=== PATIENT | female | born 1970 | race Caucasian/White ===

== ENCOUNTER 2019-01-30 20:16 | Emergency (ER) | payer MEDICAID ==
[~2019-01-30] VITALS: Ht 162.6 cm; Wt 72.7 kg
[~2019-01-30 20:16] MED LIST: ONDA4TAB12 PO; ONDA4TAB6 PO
[2019-01-30 20:22] VITALS: BP 135/87
--- NOTE | 2019-01-30 20:35 | NUR ---
SOC Telepsych initiated.
[2019-01-30 21:00] LABS: BASOPHILS # (AUTO) 0.1 X10'3 (0-0.2); BASOPHILS % (AUTO) 0.6 % (0-1); EOSINOPHILS # (AUTO) 0.3 X10'3 (0-0.9); EOSINOPHILS % (AUTO) 2.9 % (0-6); HEMATOCRIT 45.3 % (35.0-45.0); HEMOGLOBIN 15.3 g/dl (12.0-16.0); LYMPHOCYTES # (AUTO) 2.5 X10'3 (1.1-4.8); LYMPHOCYTES % (AUTO) 27.5 % (21-51); MEAN CORPUSCULAR HEMOGLOBIN 32.7 PG (27.0-31.0); MEAN CORPUSCULAR HGB CONC 33.9 g/dL (33.0-36.5); MEAN CORPUSCULAR VOLUME 96.7 FL (78-98); MEAN PLATELET VOLUME 7.4 FL (7.4-10.4); MONOCYTES # (AUTO) 0.8 X10'3 (0-0.9); MONOCYTES % (AUTO) 9.3 % (2-12); NEUTROPHILS # (AUTO) 5.4 X10'3 (1.8-7.7); NEUTROPHILS % (AUTO) 59.7 % (42-75); PLATELET COUNT 262 X10'3 (140-440); RED BLOOD COUNT 4.68 X10'6 (4.20-5.60); RED CELL DISTRIBUTION WIDTH 12.9 % (11.5-14.5)
[2019-01-30 21:20] LABS: ALANINE AMINOTRANSFERASE 109 U/L (12-78); ALBUMIN 3.6 G/DL (3.4-5.0); ALKALINE PHOSPHATASE 74 IU/L (46-116); ANION GAP 11 (8-16); ASPARTATE AMINO TRANSFERASE 48 U/L (10-37); BILIRUBIN,TOTAL 0.1 MG/DL (0.1-1.0); BLOOD UREA NITROGEN 8 MG/DL (7-18); BUN/CREATININE RATIO 12.5 (6.6-38.0); CALCIUM 9.8 MG/DL (8.5-10.1); CHLORIDE 109 MMOL/L (99-107); CREATININE 0.64 MG/DL (0.40-0.90); GLUCOSE 104 MG/DL (70-104); SODIUM 145 MMOL/L (135-145); TOTAL CARBON DIOXIDE 25.3 MMOL/L (24-32); TOTAL PROTEIN 7.2 G/DL (6.4-8.2); eGFR > 90 ML/MIN
[2019-01-30 21:30] LABS: ETHANOL 0.196 GM/DL (0.0-0.010)
[2019-01-30 22:03] LABS: ACETAMINOPHEN < 2.0 UG/ML (10-30)
--- NOTE | 2019-01-30 23:03 | NUR ---
SOC RECOMMENDS HOLDING PATIENT AT THIS TIME FOR HER SAFETY
[2019-01-30 23:19] LABS: URINE HCG NEGATIVE (NEG)
[2019-01-30 23:29] LABS: URINE AMPHETAMINE SCREEN POSITIVE (Neg); URINE BARBITUATE SCREEN NEGATIVE (Neg); URINE BENZODIAZEPINES SCREEN NEGATIVE (Neg); URINE CANNABINOID SCREEN POSITIVE (Neg); URINE COCAINE SCREEN NEGATIVE (Neg); URINE METHADONE SCREEN NEGATIVE (Neg); URINE OPIATE SCREEN NEGATIVE (Neg); URINE PHENCYCLIDINE SCREEN NEGATIVE (Neg)
[2019-01-31] MEDS ORDERED: NO HOME MEDS (04:08)
--- NOTE | 2019-01-31 04:42 | NUR ---
MOVED TO OF [facility] BED, ORIENTED TO UNIT.
--- NOTE | 2019-01-31 05:59 | NUR ---
Packet sent to [facility]. Unable to confirm receipt, as [id number] hours.
[2019-01-31] MEDS ORDERED: multivitamins, therapeutics tablet PO SCH (08:00)
[2019-01-31] MEDS ORDERED: thiamine 100mg tablet PO SCH (08:00)
[2019-01-31] MEDS ORDERED: folic acid 1mg tablet PO SCH (08:00)
--- NOTE | 2019-01-31 11:00 | NUR ---
Pt continues to rest quietly in bed without complaints. Pt awaiting evaluation by [facility].
--- NOTE | 2019-01-31 12:51 | NUR ---
Pt evaluated by [facility] and deemed to not meet criteria for 5150 and will be released. Pt has bright affect.
== END 2019-01-31 13:10 ==
LOC: ER 20:16
DX: F32.9 Major depressive disorder, single episode, unspecified (principal); F10.920 Alcohol use, unspecified with intoxication, uncomplicated; F12.90 Cannabis use, unspecified, uncomplicated; F15.90 Other stimulant use, unspecified, uncomplicated; Z90.49 Acquired absence of other specified parts of digestive tract; Z88.2 Allergy status to sulfonamides
CPT/HCPCS: 36415; 80053; 80305; 80320; 80329; 81025; 84443; 85025; 99284

== ENCOUNTER 2019-02-17 03:16 | Emergency (ER) | payer MEDICAID ==
[~2019-02-17] VITALS: Ht 162.6 cm; Wt 69.0 kg
[~2019-02-17 03:16] MED LIST changes: +NO HOME MEDS; -ONDA4TAB12 PO; -ONDA4TAB6 PO
[2019-02-17] MEDS ORDERED: fentaNYL/PF 50MCG/1 ML 2ML syringe IV ONE (03:30)
[2019-02-17] MEDS ORDERED: iohexol 300mg/ml 100ml inj. ONE (03:33)
[2019-02-17 04:38] LABS: BASOPHILS # (AUTO) 0.1 X10'3 (0-0.2); BASOPHILS % (AUTO) 0.5 % (0-1); EOSINOPHILS # (AUTO) 0.3 X10'3 (0-0.9); EOSINOPHILS % (AUTO) 2.5 % (0-6); HEMATOCRIT 41.6 % (35.0-45.0); HEMOGLOBIN 14.6 g/dl (12.0-16.0); LYMPHOCYTES # (AUTO) 2.2 X10'3 (1.1-4.8); LYMPHOCYTES % (AUTO) 17.7 % (21-51); MEAN CORPUSCULAR HEMOGLOBIN 33.9 PG (27.0-31.0); MEAN CORPUSCULAR VOLUME 96.8 FL (78-98); MEAN PLATELET VOLUME 7.4 FL (7.4-10.4); MONOCYTES # (AUTO) 1.1 X10'3 (0-0.9); MONOCYTES % (AUTO) 8.8 % (2-12); NEUTROPHILS # (AUTO) 8.7 X10'3 (1.8-7.7); NEUTROPHILS % (AUTO) 70.5 % (42-75); PLATELET COUNT 247 X10'3 (140-440); RED CELL DISTRIBUTION WIDTH 12.2 % (11.5-14.5); WHITE BLOOD COUNT 12.3 X10'3 (4.5-11.0)
[2019-02-17 04:50] LABS: ALANINE AMINOTRANSFERASE 86 U/L (12-78); ALBUMIN 3.7 G/DL (3.4-5.0); ALBUMIN/GLOBULIN RATIO 1.2 (1.1-1.5); ALKALINE PHOSPHATASE 76 IU/L (46-116); ANION GAP 9 (8-16); ASPARTATE AMINO TRANSFERASE 52 U/L (10-37); BILIRUBIN,TOTAL 0.3 MG/DL (0.1-1.0); BLOOD UREA NITROGEN 13 MG/DL (7-18); BUN/CREATININE RATIO 17.3 (6.6-38.0); CALCIUM 8.6 MG/DL (8.5-10.1); CHLORIDE 104 MMOL/L (99-107); CREATININE 0.75 MG/DL (0.40-0.90); ETHANOL 0.173 GM/DL (0.0-0.010); GLUCOSE 94 MG/DL (70-104); POTASSIUM 3.2 MMOL/L (3.5-5.1); SODIUM 138 MMOL/L (135-145); TOTAL CARBON DIOXIDE 25.2 MMOL/L (24-32); TOTAL PROTEIN 6.8 G/DL (6.4-8.2); eGFR 83 ML/MIN
[2019-02-17] MEDS ORDERED: TETanus/Pertussis (Acell)/Diphther VAC/PF (Tdap-Adult) 0.5ml syringe IM ONE (05:35)
--- NOTE | 2019-02-17 05:48 | NUR ---
tele psych initiated
--- NOTE | 2019-02-17 06:39 | NUR ---
FROM SOC FOR STATUS UPDATE
[2019-02-17] MEDS ORDERED: ondansetron/PF 4mg/2ml inj IV ONE (06:50)
--- NOTE | 2019-02-17 06:52 | NUR ---
PT EVALUATED BY SOC. RECOMMENDED GABAPENTIN 100MG TID AND TO PLACE PT ON A 5150 HOLD. WILL NOTIFIY [facility] AND PROVIDER
--- NOTE | 2019-02-17 07:30 | NUR ---
PT C/O NAUSEA, MEDICATED WITH ZOFRAN. STATES NAUSEA IS BETTER NOW
[2019-02-17] MEDS ORDERED: gabapentin 100mg capsule PO ONE ×2 (08:00)
[2019-02-17 09:53] LABS: URINE HCG NEGATIVE (NEG)
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
[2019-02-17] MEDS ORDERED: LORazepam 1 MG tablet PO ONE ×2 (10:10→20:30)
[2019-02-17 10:11] LABS: URINE AMPHETAMINE SCREEN POSITIVE (Neg); URINE BARBITUATE SCREEN NEGATIVE (Neg); URINE BENZODIAZEPINES SCREEN NEGATIVE (Neg); URINE CANNABINOID SCREEN POSITIVE (Neg); URINE COCAINE SCREEN NEGATIVE (Neg); URINE METHADONE SCREEN NEGATIVE (Neg); URINE OPIATE SCREEN NEGATIVE (Neg); URINE PHENCYCLIDINE SCREEN NEGATIVE (Neg)
--- NOTE | 2019-02-17 10:43 | NUR ---
PT SEEN BY SHENG FROM [facility], PT PLACED ON 5150 HOLD. TELEPSYCH REPORT RECEIVED, RECOMMENDATIONS REVIEWED BY DR ARRINGTON AND MEDICATIONS ORDER RECOMMENDED.
[2019-02-17] MEDS ORDERED: GABA-530 PO (10:51)
[2019-02-17] MEDS ORDERED: FOLATE PO (10:51)
[2019-02-17] MEDS ORDERED: THIA100T66 PO (10:53)
[2019-02-17] MEDS ORDERED: folic acid 1mg tablet PO ONE (11:00)
[2019-02-17] MEDS ORDERED: folic acid 1mg tablet PO SCH (11:00)
[2019-02-17] MEDS: folic acid 1mg tablet PO SCH (11:10)
[2019-02-17] MEDS: thiamine 100mg tablet PO SCH (12:41)
[2019-02-17] MEDS: gabapentin 100mg capsule PO SCH ×2 (12:42→20:42)
[2019-02-17] MEDS ORDERED: gabapentin 100mg capsule PO SCH (16:00)
--- NOTE | 2019-02-17 16:01 | NUR ---
PATIENT ARRIVED ON OVERFLOW UNIT, AMBULATORY TO ER #[id number]. PATIENT SEEMS ANXIOUS UPON ARRIVAL. ASSISTED TO BED AND WARM BLANKET GIVEN.
[2019-02-17 16:46] LABS: CLARITY,URINE SLIGHTLY CLOUDY (Clear); COLOR,URINE YELLOW (Yellow); GLUCOSE, URINE NEGATIVE (Neg); KETONES,URINE TRACE mg/dl (Neg); LEUKOCYTE ESTERASE ,URINE NEGATIVE (Neg); NITRITES, URINE POSITIVE (Neg); OCCULT BLOOD,URINE TRACE-LYSED (Neg); PROTEIN,URINE TRACE mg/dl (Neg); UA COLLECTION TYPE CLN CATCH MIDSTREAM; UROBILINOGEN,URINE 0.2 E.U/dL (0.2-1.0)
[2019-02-17 17:05] LABS: SQUAMOUS EPITHELIAL CELL,UR FEW /LPF (FEW)
[2019-02-17 17:06] LABS: BACTERIA,URINE 2+ /HPF (Neg); RBC,URINE 0-2 /HPF (0-2)
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
[2019-02-17] MEDS: HYDROcodone/acetaminophen 5mg/325mg tablet PO PRN (20:42)
--- NOTE | 2019-02-17 21:45 | NUR ---
The patient is resting on her bed. She appears to be asleep
[2019-02-17] MEDS ORDERED: potassium Cl 20 mEq SR tablet PO STA (22:56)
[2019-02-17] MEDS: nitrofuran/nitrofuran macrocrysal 100 MG capsule PO SCH (23:08)
--- NOTE | 2019-02-17 23:13 | NUR ---
Discussed K+ level and UA results with Dr. Herrera and orders received. The patient stated she has been having symptoms of a UTI for "a long time"
--- NOTE | 2019-02-18 00:44 | NUR ---
The patient appears to be asleep
--- NOTE | 2019-02-18 03:01 | NUR ---
The patient appears to be asleep at this time
--- NOTE | 2019-02-18 04:55 | NUR ---
The patient appears to be asleep
--- NOTE | 2019-02-18 06:30 | NUR ---
Patient asleep upon change of shift observation. Undisturbed at this time.
[2019-02-18] MEDS ORDERED: FOLATE 1 MG PO SCH (08:00)
--- NOTE | 2019-02-18 08:30 | NUR ---
Awakened for Breakfast and morning medications. Pleasant upon staff approach though states she is in "a lot of pain" and has difficulty moving from side to side. Concerned regarding the status of her dog that she left alone in her apartment. Able to contact boyfriend who stated he would go to her home and check on the dog. Mother at bedside, visiting. Also braiding patient's hair. Patient picked at her food. Ate poorly.
[2019-02-18] MEDS: folic acid 1mg tablet PO SCH (08:46)
[2019-02-18] MEDS: gabapentin 100mg capsule PO SCH (08:46)
[2019-02-18] MEDS: thiamine 100mg tablet PO SCH (08:47)
[2019-02-18] MEDS: HYDROcodone/acetaminophen 5mg/325mg tablet PO PRN (08:47)
[2019-02-18] MEDS: nitrofuran/nitrofuran macrocrysal 100 MG capsule PO SCH (08:52)
--- NOTE | 2019-02-18 10:00 | NUR ---
Call received from Charge Nurse Juvenal RICO from [facility] stating patient had been accepted upstairs for admission. Patient informed and is happy with this news.
--- NOTE | 2019-02-18 11:24 | NUR ---
Patient accepted at [facility]. Will be admitted upstairs within the hour.
[2019-02-18 11:40] VITALS: BP 95/50
[2019-02-19] MEDS ORDERED: NO HOME MEDS (15:24)
== END 2019-02-18 11:00 ==
LOC: ER 03:17
DX: S60.221A Contusion of right hand, initial encounter (principal); S60.031A Contusion of right middle finger without damage to nail, initial encounter; S20.412A Abrasion of left back wall of thorax, initial encounter; F32.9 Major depressive disorder, single episode, unspecified; F12.90 Cannabis use, unspecified, uncomplicated; F15.90 Other stimulant use, unspecified, uncomplicated; Z90.49 Acquired absence of other specified parts of digestive tract; Z88.2 Allergy status to sulfonamides; Z79.899 Other long term (current) drug therapy; V45 Car occupant injured in collision with railway train or railway vehicle; Y93.39 Activity, other involving climbing, rappelling and jumping off; Y92.89 Other specified places as the place of occurrence of the external cause; Y99.8 Other external cause status
CPT/HCPCS: 36415; 71260; 72125; 73130; 80053; 80305; 80320; 81001; 81025; 85025; 90471; 90715; 96374; 99285; J2405; J3010; Q9967; 99284

== ENCOUNTER 2019-02-18 10:42 | Inpatient (IN) | payer MEDICAID ==
[~2019-02-18] VITALS: Ht 162.6 cm; Wt 73.0 kg
[~2019-02-18 10:42] MED LIST changes: +FOLATE PO; +GABA-530 PO; -NO HOME MEDS; +THIA100T66 PO
[2019-02-18] MEDS ORDERED: loperamide 2mg capsule PO PRN (12:20)
[2019-02-18] MEDS ORDERED: mag hydrox/Alum hydrox/simeth 30ml oral suspension PO PRN (12:20)
[2019-02-18] MEDS ORDERED: acetaminophen 325mg tablet PO PRN (12:20)
[2019-02-18] MEDS ORDERED: magnesium hydroxide 30ml (MOM) UD suspension PO PRN (12:20)
[2019-02-18] MEDS ORDERED: tuberculin, purif. prot. deriv. 5 units/0.1ml ID ONE (12:20)
[2019-02-18] MEDS ORDERED: hydrOXYzine 25 MG tablet PO PRN (12:20)
[2019-02-18 13:27] VITALS: BP 110/63
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
[2019-02-18] MEDS: traMADol 50MG tablet PO PRN (17:47)
[2019-02-18] MEDS: LORazepam 1 MG tablet PO PRN (17:48)
[2019-02-18] MEDS: acetaminophen 325mg tablet PO PRN (17:48)
[2019-02-18 20:00] VITALS: BP 106/67
[2019-02-18] MEDS: quetiapine 100mg tablet PO SCH (21:12)
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
[2019-02-19 07:55] VITALS: BP 93/58
[2019-02-19] MEDS: traMADol 50MG tablet PO PRN ×2 (09:41→16:09)
[2019-02-19] MEDS ORDERED: NO HOME MEDS (15:24)
[2019-02-19] MEDS: LORazepam 1 MG tablet PO PRN (16:07)
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
[2019-02-19 20:00] VITALS: BP 90/56
[2019-02-19] MEDS: quetiapine 100mg tablet PO SCH (20:59)
[2019-02-19] MEDS ORDERED: hydrOXYzine 25 MG tablet PO PRN (21:25)
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
[2019-02-20 07:49] VITALS: BP 103/53
[2019-02-20] MEDS: FLUoxetine 20mg capsule PO SCH (08:05)
[2019-02-20] MEDS: LORazepam 1 MG tablet PO PRN (08:23)
[2019-02-20] MEDS: traMADol 50MG tablet PO PRN ×2 (08:24→21:48)
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
[2019-02-20 19:41] VITALS: BP 130/83
[2019-02-20] MEDS ORDERED: traZODone 50mg tablet PO SCH (20:00)
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
[2019-02-21] MEDS: FLUoxetine 20mg capsule PO SCH (07:30)
[2019-02-21 07:39] VITALS: BP 92/57
[2019-02-21] MEDS: acetaminophen 325mg tablet PO PRN (07:40)
[2019-02-21 09:05] LABS: CHOL/HDL RATIO 1.6 (0.00-4.99); CHOLESTEROL 145 MG/DL (0-200); HDL CHOLESTEROL 90 MG/DL (35-60); LDL CHOLESTEROL 48 MG/DL (50-100); TRIGLYCERIDES 78 MG/DL (20-135)
[2019-02-21 10:33] LABS: COLOR,URINE YELLOW (Yellow); GLUCOSE, URINE NEGATIVE (Neg); KETONES,URINE NEGATIVE (Neg); LEUKOCYTE ESTERASE ,URINE NEGATIVE (Neg); NITRITES, URINE NEGATIVE (Neg); OCCULT BLOOD,URINE NEGATIVE (Neg); PROTEIN,URINE NEGATIVE (Neg); UROBILINOGEN,URINE 0.2 E.U/dL (0.2-1.0)
[2019-02-21 10:34] LABS: CLARITY,URINE SLIGHTLY CLOUDY (Clear); UA COLLECTION TYPE NON-SPECIFIED
[2019-02-21 10:48] LABS: BACTERIA,URINE FEW /HPF (Neg); MUCUS STRANDS NONE SEEN /LPF (Neg); RBC,URINE NONE SEEN /HPF (0-2); SQUAMOUS EPITHELIAL CELL,UR MODERATE /LPF (FEW); WBC,URINE 0-4 /HPF (0-4)
[2019-02-21] MEDS ORDERED: HYDR-3686 PO (11:08)
[2019-02-21] MEDS ORDERED: TRAZ-218 PO (11:08)
[2019-02-21] MEDS ORDERED: FLUO20CA22 PO (11:08)
--- NOTE | 2019-02-21 12:00 | NUR ---
Pt. discharged to home with belongings and valuables. Pt. understood plan of discarge. Pt. denies SI/HI, A/V H. Pictures of back bruise and hand bruise taken and placed in chart. Pt. picked up by boyfriend and discharged to home. Scripts faxed to [facility] on [address] per request of pt. Pt. is alert and oriented x4 and ambulated off unit.
== END 2019-02-21 12:09 | disposition home or self-care (01) | DRG 751 ==
LOC: ADULT MH 10:42
PROVIDERS: ADMIT Psychiatry & Neurology Psychiatry; ATTEND Family Medicine
DX: F33.9 Major depressive disorder, recurrent, unspecified (principal); B19.20 Unspecified viral hepatitis C without hepatic coma; F10.20 Alcohol dependence, uncomplicated; F12.90 Cannabis use, unspecified, uncomplicated; F51.01 Primary insomnia; F15.90 Other stimulant use, unspecified, uncomplicated; F41.0 Panic disorder [episodic paroxysmal anxiety]; Z79.899 Other long term (current) drug therapy; Z90.49 Acquired absence of other specified parts of digestive tract; S60.222A Contusion of left hand, initial encounter; X58.XXXA Exposure to other specified factors, initial encounter; Y93.89 Activity, other specified; Y92.815 Train as the place of occurrence of the external cause; Y99.8 Other external cause status
CPT/HCPCS: 36415; 80061; 81001; 83036; 87070; 99285; Q0177

== ENCOUNTER 2020-04-21 14:36 | Emergency (ER) | payer MEDICAID ==
[~2020-04-21] VITALS: Ht 162.6 cm; Wt 68.2 kg
[~2020-04-21 14:36] MED LIST changes: +FLUO-167 PO; -FOLATE PO; -GABA-530 PO; +HYDR-3686 PO; +LIDOcaine 1% W/epiNEPHrine 1:100,000 20ml vial ONE; +NO HOME MEDS; -THIA100T66 PO; +TRAZ-251 PO
[2020-04-21 14:44] VITALS: BP 133/94
--- NOTE | 2020-04-21 16:19 | NUR ---
pt to xray
[2020-04-21] MEDS ORDERED: IBUP-1985 PO (18:21)
== END 2020-04-21 18:30 | disposition home or self-care (01) ==
LOC: ER 14:37
DX: S71.111A Laceration without foreign body, right thigh, initial encounter (principal); S80.12XA Contusion of left lower leg, initial encounter; S80.11XA Contusion of right lower leg, initial encounter; S60.512A Abrasion of left hand, initial encounter; S80.212A Abrasion, left knee, initial encounter; F32.9 Major depressive disorder, single episode, unspecified; F10.10 Alcohol abuse, uncomplicated; F12.90 Cannabis use, unspecified, uncomplicated; F15.90 Other stimulant use, unspecified, uncomplicated; Z90.49 Acquired absence of other specified parts of digestive tract; Z88.2 Allergy status to sulfonamides; Z79.899 Other long term (current) drug therapy; V19.88XA Pedal cyclist (driver) (passenger) injured in other specified transport accidents, initial encounter; Y93.89 Activity, other specified; Y92.488 Other paved roadways as the place of occurrence of the external cause; Y99.8 Other external cause status
CPT/HCPCS: 73110; 73564; 73660; 99284

== ENCOUNTER 2020-10-26 12:46 | Emergency (ER) | payer MEDICAID ==
[~2020-10-26 12:46] MED LIST changes: +IBUP-1985 PO; -LIDOcaine 1% W/epiNEPHrine 1:100,000 20ml vial ONE
[2020-10-26] MEDS ORDERED: ceFAZolin 1000mg inj ONE (13:02)
[2020-10-26] MEDS ORDERED: vancomycin 1,000mg inj ONE (13:02)
--- NOTE | 2020-10-26 13:14 | NUR ---
SECOND CALL, NOT IN LOBBY
--- NOTE | 2020-10-26 13:42 | NUR ---
THIRD CALL NOT IN LOBBY. CHART GIVEN TO SECURITY INVESTIGATOR
== END 2020-10-26 14:08 | disposition left against medical advice (07) ==
LOC: ER 12:47
DX: M25.539 Pain in unspecified wrist (principal); Z53.21 Procedure and treatment not carried out due to patient leaving prior to being seen by health care provider
CPT/HCPCS: J0690; J3370

== ENCOUNTER 2021-02-18 08:11 | Emergency (ER) | payer MEDICAID ==
[~2021-02-18] VITALS: Ht 167.6 cm; Wt 81.8 kg
[2021-02-18] MEDS ORDERED: ketorolac trometh. 30mg/ml inj. IM ONE (08:30)
[2021-02-18 11:28] LABS: BASOPHILS # (AUTO) 0.1 X10'3 (0-0.2); BASOPHILS % (AUTO) 0.8 % (0-1); EOSINOPHILS # (AUTO) 0.5 X10'3 (0-0.9); EOSINOPHILS % (AUTO) 6.2 % (0-6); HEMATOCRIT 41.4 % (35.0-45.0); LYMPHOCYTES # (AUTO) 1.6 X10'3 (1.1-4.8); LYMPHOCYTES % (AUTO) 20.6 % (21-51); MEAN CORPUSCULAR HEMOGLOBIN 32.6 PG (27.0-31.0); MEAN CORPUSCULAR HGB CONC 33.8 g/dL (33.0-36.5); MEAN CORPUSCULAR VOLUME 96.4 FL (78-98); MEAN PLATELET VOLUME 7.2 FL (7.4-10.4); MONOCYTES # (AUTO) 0.9 X10'3 (0-0.9); NEUTROPHILS # (AUTO) 4.8 X10'3 (1.8-7.7); NEUTROPHILS % (AUTO) 61.4 % (42-75); PLATELET COUNT 269 X10'3 (140-440); RED CELL DISTRIBUTION WIDTH 13.2 % (11.5-14.5); WHITE BLOOD COUNT 7.8 X10'3 (4.5-11.0)
[2021-02-18 11:42] LABS: ALANINE AMINOTRANSFERASE 72 U/L (12-78); ALBUMIN 3.4 G/DL (3.4-5.0); ALKALINE PHOSPHATASE 64 IU/L (46-116); ANION GAP 8 (8-16); ASPARTATE AMINO TRANSFERASE 41 U/L (10-37); BILIRUBIN,TOTAL 0.5 MG/DL (0.1-1.0); BLOOD UREA NITROGEN 13 MG/DL (7-18); BUN/CREATININE RATIO 17.8 (6.6-38.0); CALCIUM 8.8 MG/DL (8.5-10.1); CHLORIDE 104 MMOL/L (99-107); CREATININE 0.73 MG/DL (0.40-0.90); GLUCOSE 104 MG/DL (70-104); POTASSIUM 3.8 MMOL/L (3.5-5.1); SODIUM 139 MMOL/L (135-145); TOTAL CARBON DIOXIDE 26.7 MMOL/L (24-32); TOTAL PROTEIN 6.9 G/DL (6.4-8.2); eGFR 85 ML/MIN
[2021-02-18 11:57] LABS: D-DIMER 0.28 MG/L FEU (0-0.50)
[2021-02-18] MEDS ORDERED: HYDR-3965 PO (12:16)
[2021-02-18 12:21] VITALS: BP 135/80
== END 2021-02-18 12:26 | disposition home or self-care (01) ==
LOC: ER 08:11
DX: R07.89 Other chest pain (principal); R91.1 Solitary pulmonary nodule; F32.9 Major depressive disorder, single episode, unspecified; F10.10 Alcohol abuse, uncomplicated; F12.90 Cannabis use, unspecified, uncomplicated; F15.90 Other stimulant use, unspecified, uncomplicated; F17.210 Nicotine dependence, cigarettes, uncomplicated; Z90.49 Acquired absence of other specified parts of digestive tract; Z88.2 Allergy status to sulfonamides; Z79.899 Other long term (current) drug therapy; Y90.9 Presence of alcohol in blood, level not specified
CPT/HCPCS: 36415; 71045; 71250; 80053; 85025; 85379; 85610; 96372; 99285; J1885

== ENCOUNTER 2022-08-13 10:09 | Emergency (ER) | payer MEDICAID ==
[~2022-08-13] VITALS: Ht 162.6 cm; Wt 76.0 kg
[2022-08-13] MEDS ORDERED: normal saline 1000ML IV soln IV ONE (10:45)
[2022-08-13] MEDS ORDERED: ondansetron/PF 4mg/2ml inj IV ONE (10:45)
[2022-08-13] MEDS ORDERED: LORazepam 2 mg/ml vial IV ONE (10:45)
[2022-08-13] MEDS ORDERED: normal saline 1000ML IV soln IVB ONE (10:45)
[2022-08-13] MEDS ORDERED: famotidine/PF 10 mg/ml inj IV ONE (10:45)
[2022-08-13] MEDS ORDERED: glucagon, human recombinant 1mg kit IV ONE (10:45)
[2022-08-13 11:18] LABS: BASOPHILS % (AUTO) 0.4 % (0-1); EOSINOPHILS # (AUTO) 0.1 X10'3 (0-0.9); EOSINOPHILS % (AUTO) 2.7 % (0-6); HEMATOCRIT 47.7 % (35.0-45.0); HEMOGLOBIN 16.2 g/dl (12.0-16.0); LYMPHOCYTES # (AUTO) 1.1 X10'3 (1.1-4.8); LYMPHOCYTES % (AUTO) 19.8 % (21-51); MEAN CORPUSCULAR HEMOGLOBIN 32.9 PG (27.0-31.0); MEAN CORPUSCULAR VOLUME 96.9 FL (78-98); MEAN PLATELET VOLUME 7.4 FL (7.4-10.4); MONOCYTES # (AUTO) 0.6 X10'3 (0-0.9); MONOCYTES % (AUTO) 10.9 % (2-12); NEUTROPHILS # (AUTO) 3.6 X10'3 (1.8-7.7); NEUTROPHILS % (AUTO) 66.2 % (42-75); PLATELET COUNT 250 X10'3 (140-440); RED BLOOD COUNT 4.92 X10'6 (4.20-5.60); RED CELL DISTRIBUTION WIDTH 12.5 % (11.5-14.5); WHITE BLOOD COUNT 5.5 X10'3 (4.5-11.0)
[2022-08-13 11:30] LABS: ALANINE AMINOTRANSFERASE 160 U/L (12-78); ALKALINE PHOSPHATASE 69 IU/L (46-116); ANION GAP 9 (8-16); ASPARTATE AMINO TRANSFERASE 86 U/L (10-37); BILIRUBIN,TOTAL 0.7 MG/DL (0.1-1.0); BLOOD UREA NITROGEN 9 MG/DL (7-18); CALCIUM 9.8 MG/DL (8.5-10.1); CHLORIDE 105 MMOL/L (99-107); CREATININE 0.69 MG/DL (0.40-0.90); GLUCOSE 100 MG/DL (70-104); POTASSIUM 3.8 MMOL/L (3.5-5.1); SODIUM 140 MMOL/L (135-145); TOTAL CARBON DIOXIDE 25.6 MMOL/L (24-32); eGFR 90 ML/MIN
[2022-08-13 15:25] VITALS: BP 148/78
== END 2022-08-13 16:16 | disposition home or self-care (01) ==
LOC: ER 10:09
DX: K22.2 Esophageal obstruction (principal); R10.9 Unspecified abdominal pain; F12.90 Cannabis use, unspecified, uncomplicated; F15.20 Other stimulant dependence, uncomplicated; Z88.2 Allergy status to sulfonamides; Z90.49 Acquired absence of other specified parts of digestive tract
CPT/HCPCS: 36415; 71045; 80053; 85025; 85610; 96361; 96374; 96375; 99284; J1610; J2060; J2405; J3490; J7030

== ENCOUNTER 2023-01-19 19:36 | Emergency (ER) | payer MEDICAID ==
[~2023-01-19] VITALS: Ht 162.6 cm; Wt 79.5 kg
[2023-01-19] MEDS ORDERED: albuterol 2.5 MG/3 ML nebule NEB STA (19:39)
[2023-01-19 19:40] VITALS: BP 146/106
== END 2023-01-19 20:58 | disposition left against medical advice (07) ==
LOC: ER 19:37
DX: J45.909 Unspecified asthma, uncomplicated (principal); Z53.21 Procedure and treatment not carried out due to patient leaving prior to being seen by health care provider
CPT/HCPCS: 94640; 94760; 99281

== ENCOUNTER 2023-01-22 15:52 | Emergency (ER) | payer MEDICAID ==
[~2023-01-22] VITALS: Ht 160 cm; Wt 79.5 kg
[2023-01-22 15:57] VITALS: BP 134/67
[2023-01-22] MEDS ORDERED: ALBU8HFA PO (16:22)
[2023-01-22] MEDS ORDERED: FLUO-167 PO (16:22)
== END 2023-01-22 17:38 | disposition home or self-care (01) ==
LOC: ER 15:53
DX: F41.9 Anxiety disorder, unspecified (principal); F32.9 Major depressive disorder, single episode, unspecified; F12.90 Cannabis use, unspecified, uncomplicated; F15.90 Other stimulant use, unspecified, uncomplicated; F10.10 Alcohol abuse, uncomplicated; Z90.49 Acquired absence of other specified parts of digestive tract; Z86.19 Personal history of other infectious and parasitic diseases; Z88.2 Allergy status to sulfonamides; Z79.899 Other long term (current) drug therapy; Y90.9 Presence of alcohol in blood, level not specified
CPT/HCPCS: 71045; 99283

== ENCOUNTER 2023-04-05 16:18 | Emergency (ER) | payer MEDICAID | END 2023-04-05 17:19 | disposition left against medical advice (07) | LOC: ER 16:19 | DX: F41.9 Anxiety disorder, unspecified (principal); Z53.21 Procedure and treatment not carried out due to patient leaving prior to being seen by health care provider ==

== ENCOUNTER 2023-10-09 14:12 | Emergency (ER) | payer MEDICAID ==
[~2023-10-09] VITALS: Ht 162.6 cm; Wt 78.4 kg
[~2023-10-09 14:12] MED LIST changes: +CEPH-585 PO
[2023-10-09] MEDS ORDERED: diphenhydrAMINE 50 mg/ml inj IM ONE (15:50)
[2023-10-09] MEDS ORDERED: DIPH25CA83 PO (17:29)
[2023-10-09 17:37] VITALS: BP 184/82; PULSE 62; RESP 16; TEMP 98.7; O2SAT 99
== END 2023-10-09 17:43 | disposition home or self-care (01) ==
LOC: ER 14:13
DX: L29.9 Pruritus, unspecified (principal); T43.595A Adverse effect of other antipsychotics and neuroleptics, initial encounter; F32.9 Major depressive disorder, single episode, unspecified; F12.90 Cannabis use, unspecified, uncomplicated; F15.90 Other stimulant use, unspecified, uncomplicated; F10.10 Alcohol abuse, uncomplicated; Z90.49 Acquired absence of other specified parts of digestive tract; Z86.19 Personal history of other infectious and parasitic diseases; Z88.2 Allergy status to sulfonamides; Z79.899 Other long term (current) drug therapy; Y92.89 Other specified places as the place of occurrence of the external cause; Y90.9 Presence of alcohol in blood, level not specified
CPT/HCPCS: 96372; 99283; J1200

== ENCOUNTER 2024-05-15 12:34 | Outpatient (CLI) | payer MEDICAID ==
[~2024-05-15 12:34] MED LIST changes: +DIPH25CA83 PO
== END 2024-05-15 23:59 | disposition home or self-care (01) ==
LOC: RAD 12:34
PROVIDERS: ATTEND Family Medicine
DX: K76.0 Fatty (change of) liver, not elsewhere classified (principal); B19.20 Unspecified viral hepatitis C without hepatic coma; Z90.49 Acquired absence of other specified parts of digestive tract
CPT/HCPCS: 76700

== ENCOUNTER → 2025-07-05 | Emergency (ER) | payer MEDICAID ==
[~2025-07-05] VITALS: Ht 162.6 cm; Wt 71.8 kg
[~2025-07-05] MED LIST changes: -CEPH-585 PO; -IBUP-1985 PO; +IBUP600T52 PO; +LIDOcaine 1% W/epiNEPHrine 1:100,000 20ml vial SQ ONE
[2025-07-05 16:05] VITALS: TEMP 98.5
--- NOTE | 2025-07-05 16:15 | Physician Documentation ---
History of Present Illness ~ Chief Complaint: Vaginal pain Stated Complaint: CYST Time Seen by MD: 18:06 Primary Medical Doctor: Dr. Sweeney [facility] This is a 55-year-old female who presents with concern for Bartholin cyst, patient was seen at an urgent care and informed she had an one cyst that would require drainage that the urgent care was unable to drain on-site, patient reports she was told she needed to see a specialist. Patient reports no other acute symptoms or concerns. Patient states she started a prescription of clindamycin 3 times a day a few days ago. Patient has no other complaints at this time. She denies any fevers or chills. Medication Reconciliation Allergies: Coded Allergies: Sulfa (Sulfonamide Antibiotics) (Verified Allergy, Severe, COLLAPSED AIRWAY, 07/05/25) Scheduled Diphenhydramine Hcl (Benadryl), 1 CAP PO HS Fluoxetine HCl (Fluoxetine HCl), 20 MG PO DAILY Ibuprofen (Ibuprofen), 1 TAB PO Q8H Trazodone HCl (Trazodone HCl), 100 MG PO DAILY@20 Scheduled PRN Hydroxyzine Hcl* (Atarax*), 50 MG PO Q6H PRN for AGITATION Miscellaneous Medications Home Med List (No Home Medications), (Reported) Past Medical History Past Medical History: Hepatitis C, Liver Disease, *INFECTIOUS DZ*, Depression Past Surgical History: cholecystectomy Alcohol Use: Abuse Drug Use: marijuana, methamphetamine Lives with: Mother Lives In: Home Review of Systems ROS As stated above in the HPI, otherwise all systems are reviewed and negative. Constitutional: Denies: chills, fever, weakness Eyes: Denies: pain, blurred vision ENT: Denies: ear pain, nose pain, throat pain, mouth pain Respiratory: Denies: cough, shortness of breath Cardiovascular: Denies: chest pain, palpitations Gastrointestinal: Denies: abdominal pain, nausea, vomiting Genitourinary: Denies: burning, dysuria Female Genitalia: Denies: vaginal discharge, pelvic pain Neurological: Denies: headache, dizziness Musculoskeletal: Denies: pain, swelling Integumentary: Denies: rash, lesions Allergic/Immunologic: Denies: hives, itching Hematologic/Lymphatic: Denies: no symptoms reported Psychiatric: Denies: depression, anxiety Physical Exam Vital Signs: Temperature: 98.5, Source: Temporal, Heart Rate: 79, Respiratory Rate: 18, BP: 136/91, Pulse Oximetry: 97, Weight: 71.820 Oxygen Flow Rate: 0 Physical Exam General: Awake and Alert, no acute distress. HEENT: Conjunctiva pink, Sclera clear, Mucus Membranes moist. Neck: Supple without masses and tenderness. Resp: Unlabored. Lungs clear to auscultation bilaterally. Heart: Regular Rate and rhythm, normal S1 and S2 without murmur, rub or gallop. Genitourinary: Patient on exam does have cyst of the Bartholin gland with tenderness to palpation proximally the size of a golf ball or just smaller. On the left side. There is no current drainage at this time. Extremities: No cyanosis,clubbing or edema. Skin: Warm and Dry. Procedures Additional Procedures Additional Procedure Note Procedure note incision and drainage: 2 cc of 1% lidocaine with epinephrine was used to achieve local anesthesia of the left Bartholin cyst/abscess. A small incision measuring proximally 5 mm using an 11 blade was then used to Clark the abscess. The large amount of the purulent material was expressed. Quarter-inch packing was then used to tack the Bartholin abscess/cyst by myself today. Patient tolerated well. Progress Results/Orders Results/Orders Completed Orders - SCOTT PEACE PAC Lidocaine 1% W/Epi 1:100,000 (Xylocaine (07/05/25 21:30) Vital Signs 07/05/25 07/05/25 07/05/25 07/05/25 16:05 18:40 18:40 21:11 Temp 98.5 Pulse 79 71 62 Resp 18 18 18 18 B/P (MAP) 136/91 112/75 (87) 107/76 (86) Pulse Ox 97 98 97 O2 Flow Rate 0 0 0 07/05/25 21:26 B/P (MAP) Medical Decision Making Findings This is a 55-year-old female who presents with concern for Bartholin cyst, patient was seen at an urgent care and informed she had an one cyst that would require drainage that the urgent care was unable to drain on-site, patient reports she was told she needed to see a specialist. Patient reports no other acute symptoms or concerns. Patient states she started a prescription of clindamycin 3 times a day a few days ago. Patient has no other complaints at this time. She denies any fevers or chills. I was able to Clark the Bartholin's cyst/abscess and patient commented on immediate relief of pressure and pain. Patient will follow up with pipe installer specialist as soon as possible. Patient will return in two days for removal of packing and repacking of the cyst. Patient will return to ED with any worsening, concerning or changing symptoms. Patient will Departure Disposition: 01 HOME / SELF CARE / HOMELESS Impression: Primary Impression: Abscess of Bartholin's gland Condition: Improved Discharge Instructions: Bartholin's Cyst and Abscess Additional Instructions: I was able to Clark the Bartholin's cyst/abscess and patient commented on immediate relief of pressure and pain. Patient will follow up with pipe installer specialist as soon as possible. Patient will return in two days for removal of packing and repacking of the cyst. Patient will return to ED with any worsening, concerning or changing symptoms. Patient will Referrals: NO PRIMARY CARE PROVIDER (PCP) Signature Scribe Signature: No scribe Attestation: No scribe REGI SANFORDP Jul 05, 2025 16:15 SCOTT PEACE Jul 05, 2025 23:00
[2025-07-05 22:56] VITALS: BP 140/87; PULSE 18; RESP 18; O2SAT 100
== END | disposition home or self-care (01) ==
LOC: ER 16:00
DX: N75.1 Abscess of Bartholin's gland (principal); F32.A Depression, unspecified; F12.90 Cannabis use, unspecified, uncomplicated; F15.90 Other stimulant use, unspecified, uncomplicated; F10.10 Alcohol abuse, uncomplicated; Z88.2 Allergy status to sulfonamides; Z88.8 Allergy status to other drugs, medicaments and biological substances; Z90.49 Acquired absence of other specified parts of digestive tract; Y90.9 Presence of alcohol in blood, level not specified; Z86.19 Personal history of other infectious and parasitic diseases
CPT/HCPCS: 56420; 99284; A6266; A6407; A6449